=== PATIENT | female | born 1960 | race Caucasian/White ===

== ENCOUNTER 2019-02-24 22:08 | Emergency (ER) | payer OTHER ==
[~2019-02-24] VITALS: Ht 170.2 cm; Wt 84.0 kg
[~2019-02-24 22:08] MED LIST: BEN25 PO; RANI150T5 PO; TRIA15OI9 TOP
[2019-02-24 22:11] VITALS: BP 141/95; PULSE 91; RESP 16; Ht 170.2 cm; Wt 84.0 kg
== END 2019-02-25 | disposition home or self-care (01) ==
LOC: FTE 22:08
DX: S80.861A Insect bite (nonvenomous), right lower leg, initial encounter (principal); S80.862A Insect bite (nonvenomous), left lower leg, initial encounter; W57.XXXA Bitten or stung by nonvenomous insect and other nonvenomous arthropods, initial encounter; Y92.9 Unspecified place or not applicable
CPT/HCPCS: 99283